=== PATIENT | male | born 1985 | race African-American/Black ===

== ENCOUNTER 2018-07-01 18:12 | Emergency (ER) | payer OTHER, SELFPAY ==
[2018-07-01 19:12] LABS: Bilirubin Negative (Negative); Blood, Urine Negative (Negative); Clarity CLEAR (Clear); Glucose, Urine (Dipstick) Negative (Negative); Leukocyte Negative (Negative); Nitrite Negative (Negative); Protein, Urine (Dipstick) Trace mg/dL (Neg-Trace); Specific Gravity, Urine 1.018 (1.002-1.036); Urobilinogen 0.2 mg/dL (0.2-1.0); pH, Urine 6.5 (5.0-9.0)
[2018-07-01 19:13] LABS: #Basophils 0.1 thou/uL (0.0-0.2); #Eosinphils 0.1 thou/uL (0.0-0.7); #Lymphocytes 1.4 thou/uL (1.20-3.40); #Monocytes 0.4 thou/uL (0.11-0.59); #Neutrophils 4.3 thou/uL (1.40-6.50); %Basophils 0.9 % (0.0-1.0); %Eosinophils 1.6 % (0.0-10.0); %Lymphocytes 22.8 % (21.0-51.0); %Monocytes 5.7 % (0.0-10.0); %Neutrophils 69.1 % (42.0-75.0); Hemoglobin 14.4 g/dL (14.0-18.0); Mean Corpuscular HGB CONC 33.9 g/dL (32.0-36.0); Mean Corpuscular Hemoglobin 31.7 pg (27.0-31.0); Mean Corpuscular Volume 93.5 fL (78.0-98.0); Mean Platelet Volume 6.8 fL (7.4-10.4); Platelet Count 297 thou/uL (130-400); RBC Distribution Width 12.6 % (11.5-14.5); Red Blood Cell (RBC) Count 4.53 mill/uL (4.70-6.10); White Blood Cell (WBC) Count 6.2 thou/uL (4.8-10.8)
[2018-07-01] MEDS ORDERED: Adacel (T-DAP) 0.5 ML VIAL ONE (19:30)
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
[2018-07-01] MEDS ORDERED: Bacitracin Zinc 1 Packet ONE (20:20)
== END 2018-07-01 20:28 ==
LOC: ERS 18:12
DX: S51.012A Laceration without foreign body of left elbow, initial encounter (principal); I10 Essential (primary) hypertension; F41.9 Anxiety disorder, unspecified; F32.9 Major depressive disorder, single episode, unspecified; F17.210 Nicotine dependence, cigarettes, uncomplicated; X78.8XXA Intentional self-harm by other sharp object, initial encounter
CPT/HCPCS: 12002; 36415; 81003; 85025; 90471; 90715

== ENCOUNTER 2018-07-05 12:48 | Emergency (ER) | payer OTHER, SELFPAY ==
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
== END 2018-07-05 15:35 | disposition home or self-care (01) ==
LOC: SCSER 12:48
DX: S01.81XA Laceration without foreign body of other part of head, initial encounter (principal); S83.91XA Sprain of unspecified site of right knee, initial encounter; S60.221A Contusion of right hand, initial encounter; I10 Essential (primary) hypertension; F41.9 Anxiety disorder, unspecified; F32.9 Major depressive disorder, single episode, unspecified; Y04.0XXA Assault by unarmed brawl or fight, initial encounter
CPT/HCPCS: 12013; 70450; 72125

== ENCOUNTER 2018-08-04 15:02 | Emergency (ER) | payer OTHER, SELFPAY ==
[~2018-08-04 15:02] MED LIST: ISOVUE-370 76%-LOCM 1 ML ONE
[2018-08-04] MEDS ORDERED: Lidocaine 1% w/Epinephrine 1:100K 20 ML VIAL ONE (15:13)
[2018-08-04 16:24] LABS: Amphetamine Not Detected (NotDetected); Barbiturates Screen Not Detected (NotDetected); Benzodiazepine Screen Not Detected (NotDetected); Cocaine Metabolite Screen Not Detected (NotDetected); Medtox Control Line Valid? VALID (VALID); Medtox Reader # READER 4; Methadone Not Detected (NotDetected); Methamphetamine Not Detected (NotDetected); Opiate Screen Not Detected (NotDetected); Oxycodone Screen Not Detected (NotDetected); Phencyclidine (PCP) Not Detected (NotDetected); THC/Cannabinoid Screen Not Detected (NotDetected); Tricyclic Screen Not Detected (NotDetected)
[2018-08-04] MEDS ORDERED: traZODone HCl 50 MG TAB ONE ×2 (16:42→16:55)
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
[2018-08-04] MEDS ORDERED: Bacitracin Zinc 1 Packet ONE ×2 (17:25→18:01)
--- NOTE | 2018-08-10 11:35 | EKG ---
Test Reason : Blood Pressure : / mmHG Vent. Rate : 052 BPM Atrial Rate : 052 BPM P-R Int : 158 ms QRS Dur : 086 ms QT Int : 440 ms P-R-T Axes : 053 047 031 degrees QTc Int : 409 ms Sinus bradycardia Otherwise normal ECG Confirmed by ZENA YEBOAH DO ([id number]), web content editor ABHI TORO ([id number]) on 08/10/2018 11:35:32 AM Referred By: ADE MUNOZ Confirmed By:ZENA YEBOAH DO
== END 2018-08-04 19:52 ==
LOC: ERS 15:02
DX: S11.91XA Laceration without foreign body of unspecified part of neck, initial encounter (principal); S41.112A Laceration without foreign body of left upper arm, initial encounter; F23 Brief psychotic disorder; I10 Essential (primary) hypertension; F41.9 Anxiety disorder, unspecified; F32.9 Major depressive disorder, single episode, unspecified; W26.0XXA Contact with knife, initial encounter
CPT/HCPCS: 12002; 36415; 70498; 80306; 80307; 93005; 96360; 96361; J2001

== ENCOUNTER 2018-09-02 12:51 | Emergency (ER) | payer OTHER, SELFPAY ==
[2018-09-02] MEDS ORDERED: Lidocaine 1% w/Epinephrine 1:100K 20 ML VIAL ONE ×2 (13:15→13:23)
[2018-09-02] MEDS ORDERED: Lorazepam 2 MG/ML VIAL ONE (13:34)
[2018-09-02] MEDS ORDERED: Bacitracin Zinc 1 Packet ONE (14:04)
[2018-09-02] MEDS ORDERED: Haloperidol Lactate 5 MG/ML VIAL ONE (14:44)
== END 2018-09-02 14:47 | disposition home or self-care (01) ==
LOC: ERS 12:51
DX: S51.012A Laceration without foreign body of left elbow, initial encounter (principal); F32.9 Major depressive disorder, single episode, unspecified; F41.9 Anxiety disorder, unspecified; I10 Essential (primary) hypertension; X78.8XXA Intentional self-harm by other sharp object, initial encounter
CPT/HCPCS: 12004; 96372; 99285; J1630; J2001; J2060

== ENCOUNTER 2018-09-20 21:14 | Emergency (ER) | payer SELFPAY ==
[2018-09-20] MEDS ORDERED: Lidocaine 1% w/Epinephrine 1:100K 20 ML VIAL ONE (21:26)
== END 2018-09-20 21:56 | disposition home or self-care (01) ==
LOC: SCSER 21:14
DX: S41.112A Laceration without foreign body of left upper arm, initial encounter (principal); F41.9 Anxiety disorder, unspecified; F20.9 Schizophrenia, unspecified; F31.9 Bipolar disorder, unspecified; Y28.8XXA Contact with other sharp object, undetermined intent, initial encounter
CPT/HCPCS: 12002; J2001

== ENCOUNTER 2021-01-04 09:55 | Emergency (ER) | payer SELFPAY ==
[2021-01-04] MEDS ORDERED: Lidocaine 1% w/Epinephrine 1:100K 20 ML VIAL ONE (10:57)
[2021-01-04] MEDS ORDERED: Bacitracin 1 PK ONE (11:13)
== END 2021-01-04 11:22 ==
LOC: EEVIPCON 09:55 → ERS 09:55
DX: S51.012A Laceration without foreign body of left elbow, initial encounter (principal); I10 Essential (primary) hypertension; F17.210 Nicotine dependence, cigarettes, uncomplicated; X78.8XXA Intentional self-harm by other sharp object, initial encounter
CPT/HCPCS: 12002

== ENCOUNTER 2021-02-22 15:01 | Emergency (ER) | payer OTHER, SELFPAY ==
[2021-02-22] MEDS ORDERED: Lidocaine 1% w/Epinephrine 1:100K 20 ML VIAL ONE (15:10)
[2021-02-22] MEDS ORDERED: Morphine 4 MG/ML VIAL ONE ×2 (15:18→18:18)
[2021-02-22] MEDS ORDERED: Tranexamic Acid 1,000 MG/10 ML VIAL ONE (15:25)
[2021-02-22] MEDS ORDERED: Boostrix 0.5 ML (Tdap) VIAL ONE ×2 (15:25→16:06)
[2021-02-22 17:19] LABS: #Basophils 0.1 thou/uL (0.0-0.2); #Eosinphils 0.1 thou/uL (0.0-0.7); #Lymphocytes 1.6 thou/uL (1.20-3.40); #Monocytes 0.5 thou/uL (0.11-0.59); #Neutrophils 5.6 thou/uL (1.40-6.50); %Basophils 0.7 % (0.0-1.0); %Eosinophils 0.9 % (0.0-10.0); %Lymphocytes 20.9 % (21.0-51.0); %Monocytes 6.4 % (0.0-10.0); %Neutrophils 71.1 % (42.0-75.0); Mean Corpuscular HGB CONC 32.5 g/dL (32.0-36.0); Mean Corpuscular Hemoglobin 30.2 pg (27.0-31.0); Mean Platelet Volume 7.1 fL (7.4-10.4); Platelet Count 294 thou/uL (130-400); RBC Distribution Width 12.6 % (11.5-14.5); Red Blood Cell (RBC) Count 4.28 mill/uL (4.70-6.10); White Blood Cell (WBC) Count 7.8 thou/uL (4.8-10.8)
[2021-02-22 17:29] LABS: ALT (SGPT) 31 U/L (8-55); AST (SGOT) 26 U/L (5-34); Acetaminophen Less than 6.0 mcg/mL (10.0-30.0); Albumin 4.1 g/dL (3.5-5.0); Alcohol Less than 10 mg/dL (Less than 10); Alkaline Phosphatase 59 U/L (40-110); Anion Gap 15 mmol/L (10-20); BUN (Urea Nitrogen) 10 mg/dL (8.9-20.6); Bilirubin, Total 0.3 mg/dL (0.2-1.2); CK (CPK) 569 U/L (30-200); Calc. Creatinine Clearance 0 mL/min (70-130); Carbon Dioxide 22 mmol/L (22-29); Chloride 105 mmol/L (98-107); Globulin 3.3 g/dL (2.4-3.5); Glucose 120 mg/dL (70-105); Potassium 3.8 mmol/L (3.5-5.1); Protein, Total 7.4 g/dL (6.0-8.3); Salicylate Less than 8.0 mg/dL (15.0-30.0); Sodium 138 mmol/L (136-145)
[2021-02-22 18:38] LABS: Amphetamine Not Detected (NotDetected); Barbiturates Screen Not Detected (NotDetected); Benzodiazepine Screen Not Detected (NotDetected); Cocaine Metabolite Screen Not Detected (NotDetected); Medtox Control Line Valid? VALID (VALID); Medtox Reader # READER 4; Methadone Not Detected (NotDetected); Methamphetamine Not Detected (NotDetected); Opiate Screen Detected (NotDetected); Oxycodone Screen Not Detected (NotDetected); Phencyclidine (PCP) Not Detected (NotDetected); THC/Cannabinoid Screen Not Detected (NotDetected); Tricyclic Screen Not Detected (NotDetected)
[2021-02-22 19:33] LABS: Bacteria/HPF None Seen HPF (None Seen); Bilirubin Negative (Negative); Blood, Urine Negative (Negative); Clarity Clear (Clear); Glucose, Urine (Dipstick) Normal (Negative); Ketone, Urine Negative (Negative); Leukocyte Negative Leu/uL (Negative); Nitrite Negative (Negative); Protein, Urine (Dipstick) Negative (Neg-Trace); RBC/HPF 0-3 HPF (0-3); Specific Gravity, Urine 1.021 (1.002-1.036); Squamous Epithelial None Seen HPF (0-3); Urobilinogen Normal mg/dL (Less than 2); WBC/HPF 0-3 HPF (0-3)
== END 2021-02-22 18:59 ==
LOC: ERS 15:01 → EEVIPCON 15:01 → ERS 18:59
DX: S51.012A Laceration without foreign body of left elbow, initial encounter (principal); I10 Essential (primary) hypertension; F17.210 Nicotine dependence, cigarettes, uncomplicated; X78.9XXA Intentional self-harm by unspecified sharp object, initial encounter
CPT/HCPCS: 12002; 80053; 80306; 80307; 81001; 82550; 84443; 84484; 85025; 86850; 86900; 86901; 90715; 96374; J0690; J2270